=== PATIENT | female | born 1955 | race African-American/Black ===

== ENCOUNTER 2025-02-21 16:04 | Outpatient (AMB) | payer OTHER, SELFPAY ==
[2025-02-21 16:27] VITALS: BP 142/80; PULSE 95; O2SAT 99; BMI 34.2
--- NOTE | 2025-02-21 16:27 | HO.NEPHOV ---
Vital Signs 02/21/25 16:27 Height 5 ft 4 in Weight 199 lb BMI 34.2 BP 142/80 H Blood Pressure Location Lt brachial Position Sitting Pulse 95 Pulse Source Pulse Oximeter Pulse Oximetry (%) 99 Oxygen Delivery Method Room Air Intake Visit Reasons: ENP: Hypertension, CKD-LM for patient w/appt inf Bulb Grower Required: No Accompanied by: Self / Same As Patient Allergies No Known Allergies Allergy (Verified 02/21/25 16:28) HPI Comments Details: Thank you for referring Lainey for evaluation of LISA on CKD with proteinuria as well as hypercalcemia. She has long standing hypertension needing four BP medications. She is a diabetic on metformin and has not been having good blood sugar control. Her metformin was increased recently. Inspite of multiple anti hypertensive medications, her BP is still not at goal. She is known to have proteinuria as well as hypercalcemia. She denies new back pain or bone pain. She denies taking excess NSAID's. She does not have any H/O CAD, CVA, CHF or PAD. She does not have any epistaxis, photosensitivity, skin rashes, hematuria, renal stones, dysuria or orthostatic symptoms. Her serum creatinine recently has gone up to 1.61. Her serum creatinine on 09/13/20 was 1.4. On 12/06/20 it was 1.1, 02/21/21 was 1.3, 10/17/21 was 1.0, 12/05/21 was 1.2, 06/26/22 was 1.2, 09/25/22 was 1.2, 09/23/23 was 1.5, 10/29/23 was 1.3, 02/11/24 was 1.4, 07/14/24 was 1.36 and 02/14/25 was 1.61. [facility], [facility] Medical History (Updated 02/21/25 @ 20:04 by Elton Dean MD) Obesity Thyroid nodule Obesity, class 1 Multiple renal cysts Impaired fasting glucose Hypertension Hepatic steatosis Fibroid uterus Diabetes mellitus Surgical History (Updated 02/21/25 @ 16:36 by ESTEPHANIE Virk) History of hysterectomy H/O laparoscopy Review of Systems Const All systems reviewed & are unremarkable except as noted in HPI and below Physical Exam Vital Signs: Last Vital Signs Pulse 95 02/21/25 16:27 BP 142/80 H 02/21/25 16:27 Pulse Ox 99 02/21/25 16:27 Oxygen Delivery Method Room Air 02/21/25 16:27 BMI result Body Mass Index 34.2 Const General: comfortable and no acute distress Orientation/consciousness: patient oriented x3 HEENT Head: Yes normocephalic Mouth: Normal oral and palatal mucosa present Eyes EOM: EOMs intact bilaterally Neck Neck: Yes supple Resp Auscultation: clear to auscultation bilaterally Cardio Jugular venous distension: no JVD Rate: regular rate GI Palpation (GI): Soft to palpation Auscultation: normal bowel sounds General: Yes no CVA tenderness Back/Spine/Pelvis Back: no CVA tenderness Skin General skin exam: no rashes or lesions noted Neuro General: patient oriented x3 and moves all extremities Extrem General: Yes no pedal edema Results Reviewed Nephrology Results: No Data to Display Assessment & Plan Assessment & Plan (1) Hypercalcemia: Code(s): E83.52 - Hypercalcemia Category: Medical (2) Hypertension: Code(s): I10 - Essential (primary) hypertension Category: Medical Qualifiers: Hypertension type: primary hypertension Qualified Code(s): I10 - Essential (primary) hypertension (3) CKD stage 3a, GFR 45-59 ml/min: Code(s): N18.31 - Chronic kidney disease, stage 3a Category: Medical (4) Acute kidney injury superimposed on CKD: Code(s): N17.9 - Acute kidney failure, unspecified; N18.9 - Chronic kidney disease, unspecified Category: Medical Plan Lainey has CKD 3 at baseline likely from renovascular disease. She is currently on four BP medications and still her BP is still not at goal. She is on losartan 100 mg daily. I ordered renal USS as well as Doppler of renal arteries. She has no retinopathy, neuropathy or known LVH but has proteinuria. I reduced her losartan to 50 mg daily for now which I plan to increase to 100 mg daily after her renal functions have settled to baseline ( given possiblity of phan vascular disease) . Given her hypercalcemia, I have ordered W/U and D/Marcellus HCTZ. I also started her on Nifedipine 60 mg after discontinuing Amlodipine. She will be a great candidate for SGLT2 i. She is going to [facility] and will come back in Jun to do further W/U and follow up. Answered all questions. Orders: Orders Immunofixation Pnl, Serum 3 Months E83.52 - Hypercalcemia, I10 - Essential (primary) hypertension, N17.9 - Acute kidney failure, unspecified, N18.31 - Chronic kidney disease, stage 3a, N18.9 - Chronic kidney disease, unspecified Phosphorus 3 Months E83.52 - Hypercalcemia, I10 - Essential (primary) hypertension, N17.9 - Acute kidney failure, unspecified, N18.31 - Chronic kidney disease, stage 3a, N18.9 - Chronic kidney disease, unspecified Parathyroid Hormone Intact 3 Months E83.52 - Hypercalcemia, I10 - Essential (primary) hypertension, N17.9 - Acute kidney failure, unspecified, N18.31 - Chronic kidney disease, stage 3a, N18.9 - Chronic kidney disease, unspecified Vitamin D 25-OH Total 3 Months E83.52 - Hypercalcemia, I10 - Essential (primary) hypertension, N17.9 - Acute kidney failure, unspecified, N18.31 - Chronic kidney disease, stage 3a, N18.9 - Chronic kidney disease, unspecified US renal BI 1 Week E83.52 - Hypercalcemia, I10 - Essential (primary) hypertension, N17.9 - Acute kidney failure, unspecified, N18.31 - Chronic kidney disease, stage 3a, N18.9 - Chronic kidney disease, unspecified Electrolytes 3 Months E83.52 - Hypercalcemia, I10 - Essential (primary) hypertension, N17.9 - Acute kidney failure, unspecified, N18.31 - Chronic kidney disease, stage 3a, N18.9 - Chronic kidney disease, unspecified Calcium 3 Months E83.52 - Hypercalcemia, I10 - Essential (primary) hypertension, N17.9 - Acute kidney failure, unspecified, N18.31 - Chronic kidney disease, stage 3a, N18.9 - Chronic kidney disease, unspecified Blood Urea Nitrogen 3 Months E83.52 - Hypercalcemia, I10 - Essential (primary) hypertension, N17.9 - Acute kidney failure, unspecified, N18.31 - Chronic kidney disease, stage 3a, N18.9 - Chronic kidney disease, unspecified Creatinine 3 Months E83.52 - Hypercalcemia, I10 - Essential (primary) hypertension, N17.9 - Acute kidney failure, unspecified, N18.31 - Chronic kidney disease, stage 3a, N18.9 - Chronic kidney disease, unspecified Immunofixation, Random Urine 3 Months E83.52 - Hypercalcemia, I10 - Essential (primary) hypertension, N17.9 - Acute kidney failure, unspecified, N18.31 - Chronic kidney disease, stage 3a, N18.9 - Chronic kidney disease, unspecified Protein Creatinine Ratio, Ur 3 Months E83.52 - Hypercalcemia, I10 - Essential (primary) hypertension, N17.9 - Acute kidney failure, unspecified, N18.31 - Chronic kidney disease, stage 3a, N18.9 - Chronic kidney disease, unspecified US renal doppler 1 Week E83.52 - Hypercalcemia, I10 - Essential (primary) hypertension, N17.9 - Acute kidney failure, unspecified, N18.31 - Chronic kidney disease, stage 3a, N18.9 - Chronic kidney disease, unspecified Medications: New nifedipine ER 60 mg PO DAILY 90 tabs 3RF losartan 50 mg PO DAILY 90 tabs 4RF Coding Level of Care Code New Pt Level 4 (03924) Diagnoses Hypercalcemia E83.52 Primary hypertension I10 Hypertension type: primary hypertension CKD stage 3a, GFR 45-59 ml/min N18.31 Acute kidney injury superimposed on CKD N17.9; N18.9
== END 2025-02-21 17:02 | disposition home or self-care (01) ==
PROVIDERS: PCP Internal Medicine; Referring Provider Internal Medicine; Visit Provider Internal Medicine Nephrology
DX: E83.52 Hypercalcemia (principal); I12.9 Hypertensive chronic kidney disease with stage 1 through stage 4 chronic kidney disease, or unspecified chronic kidney disease; N18.31 Chronic kidney disease, stage 3a; N17.9 Acute kidney failure, unspecified; N18.9 Chronic kidney disease, unspecified
CPT/HCPCS: 99204

== ENCOUNTER → 2025-02-21 16:04 | Outpatient (BNVA) | payer SELFPAY | PROVIDERS: PCP Internal Medicine; Referring Provider Internal Medicine; Visit Provider Internal Medicine Nephrology | DX: E83.52 Hypercalcemia (principal); I10 Essential (primary) hypertension; N18.31 Chronic kidney disease, stage 3a; N17.9 Acute kidney failure, unspecified | CPT/HCPCS: 99202 ==

== ENCOUNTER 2025-03-03 07:53 | Outpatient (REF) | payer OTHER, SELFPAY ==
--- NOTE | ~2025-03-03 | US_ITS ---
EXAMINATION: US RETROPERITONEAL LIMITED (RENAL ONLY) CLINICAL INFORMATION: Acute kidney failure, unspecified.. COMPARISON: None available. TECHNIQUE: Ultrasound along with color Doppler imaging and spectral analysis was performed of the kidneys. FINDINGS: RIGHT KIDNEY: 15.3 x 6.6 x 9.9 cm (SAG x AP x TRV). The kidney is normal in size, contour, and echogenicity. Renal cortical thickness is normal. No calculi or suspicious focal parenchymal lesions. No hydronephrosis. There are numerous renal cysts. LEFT KIDNEY: 15.2 x 6.7 x 7.9 cm (SAG x AP x TRV). The kidney is normal in size, contour, and echogenicity. Renal cortical thickness is normal. No calculi or fissures focal parenchymal lesions. No hydronephrosis. There are numerous renal cysts. Spectral Doppler analysis: Right Kidney: -Peak systolic velocity in the proximal right renal artery = 92 cm/s. Normal waveforms. -Peak systolic velocity in the mid right renal artery = 96 cm/s. Normal waveforms. -Peak systolic velocity in the distal right renal artery = 95 cm/s. Normal waveforms. -Patent right renal vein. -Upper pole interlobar artery resistive index of 0.8. -Midpole interlobar artery resistive index of 0.8. -Lower pole interlobar artery resistive index of 0.7. RAR right = cannot calculate. Left Kidney: -Peak systolic velocity in the proximal left renal artery = 96 cm/s. Normal waveforms. -Peak systolic velocity in the mid left renal artery = 131 cm/s. Normal waveforms. -Peak systolic velocity in the distal left renal artery = 127 cm/s. Normal waveforms. -Patent left renal vein. -Upper pole interlobar artery resistive index of 0.8. -Mid pole interlobar artery resistive index of 0.8. -lower pole interlobar artery resistive index of 0.9. RAR left = cannot calculate. Aorta: -Peak systolic velocity = 116 cm/s. US/US renal doppler IMPRESSION: 1. No evidence of renal artery stenosis or abnormal waveforms bilaterally on color/spectral Doppler examination (based on peak systolic velocities). Renal veins are patent. 2. Borderline elevated resistive indices within the segmental upper, mid, and lower pole renal arteries bilaterally, nonspecific. This may be on the basis of acute kidney injury. 3. There are numerous bilateral simple renal cysts. Electronically signed by: Syed Petty MD 03/03/2025 09:07 AM EDT RP
== END 2025-03-03 07:54 | disposition home or self-care (01) ==
LOC: HO.US 07:53
PROVIDERS: Visit Provider Internal Medicine Nephrology
DX: N17.9 Acute kidney failure, unspecified (principal); N18.32 Chronic kidney disease, stage 3b; I10 Essential (primary) hypertension; E83.52 Hypercalcemia
CPT/HCPCS: 76775; 93975

== ENCOUNTER → 2025-03-03 07:56 | Outpatient (BNV) | payer OTHER, SELFPAY | PROVIDERS: Visit Provider Radiology Diagnostic Radiology | DX: N28.1 Cyst of kidney, acquired (principal) | CPT/HCPCS: 76775; 93975 ==